=== PATIENT | female | born 1945 | race Caucasian/White ===

== ENCOUNTER 2024-12-28 09:07 | Outpatient (AMB) | payer OTHER, SELFPAY ==
--- NOTE | 2024-12-28 09:27 | MHC.OFFVIS ---
Intake Visit Reasons: 6 month f/u Allergies No Known Allergies Allergy (Verified 12/28/24 09:31) Medication List - Last Reconciled 12/28/24 by Estephania Lugo CNP aripiprazole 5 mg PO DAILY carbidopa-levodopa 25-100 mg 2 tabs PO TID paroxetine HCl 40 mg PO DAILY pramipexole 0.125 mg PO TID trazodone 200 mg PO BEDTIME PRN HPI Comments Details: 79-year-old woman with depression, insomnia, and Parkinson disease. She was doing okay. She had cataract surgery in 11/2024 and 12/2024. Balance could be iffy, and she was not always using a cane, but no falls. Tremors to left hand may be a little bit more, but it was not significantly bothersome. Tremor to right hand and left leg was okay.?No difficulty eating, drinking, or swallowing. She was working 16 hours/week at [employer] in [place]. Memory was stable. Sleep was okay with trazodone. Mood was okay. [facility] Medical History (Updated 12/28/24 @ 09:31 by Estephania Lugo CNP) Depression Parkinson disease Review of Systems Const Denies chills, Denies daytime sleepiness, Denies difficulty sleeping, Denies fatigue, Denies fever(s), Denies frequent falls, Denies headache(s), Denies increased appetite, Denies poor appetite, Denies snoring, Denies weakness, Denies weight gain and Denies weight loss Eyes Denies loss of vision ENT Denies vertigo, Denies dizziness and Denies headache(s) Card Denies chest pain at rest, Denies chest pain with activity, Denies syncope, Denies leg edema and Denies palpitations Resp Denies snoring GI Denies constipation, Denies heartburn, Denies diarrhea and Denies nausea Denies urinary frequency, Denies urinary incontinence and Denies urinary urgency Musc Reports abnormal gait (balance difficulty), Denies numbness and Denies tingling Skin/Breast Denies dry skin and Denies rash Neuro Reports abnormal gait (balance difficulty), Denies vertigo, Denies dizziness, Denies syncope, Denies frequent falls, Denies headache(s), Reports lack of coordination, Denies loss of vision, Denies memory loss, Denies numbness, Denies restless legs, Denies seizure-like activity, Denies tingling, Denies paresthesias, Reports tremor(s) and Denies weakness Psych Denies anxiety, Denies depression, Denies auditory hallucinations, Denies memory loss, Denies visual hallucinations and Denies suicidal ideation Endo Denies fatigue and Denies palpitations Physical Exam Const Other: General Appearance:? normal, in no acute distress. Skin:? no rashes, no significant birthmarks. Heart:? S1, S2 normal, no murmurs. Lungs:? clear anteriorly and posteriorly. Extremities:? no edema. Psych:? alert, oriented, cognitive function intact, cooperative with exam. Neuro Other: Mental Status:?Normal attention, orientation, memory and affect.? Cranial Nerves:?Pupils are equal, round and reactive to light. External occular muscles are intact. Visual mcdonald are full. Face is symmetrical. Facial sensations are normal. Tongue is midline. Palate elevates symmetrically. Shoulder shrugging is normal. Hearing to bedside conversation is mildly decreased. Sensory Exam:?....? Coordination:?No ataxia,?no titubation.? Gait Exam: Cautious - she did not have cane today. Cerebellar Signs:?[id number] is okay. Extrapyramidal System:?Decreased facial expression and blinking. Mild generalized bradykinesia. Fine finger movements are slow bilaterally. Pronator Drift:?Not present.? 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 Speech:?Normal.? Assessment & Plan Assessment & Plan (1) Parkinson disease: Code(s): G20 - Parkinson's disease Category: Medical Qualifiers: Dyskinesia presence: unspecified whether dyskinesia Fluctuating manifestations: unspecified whether manifestations fluctuate Qualified Code(s): G20.A1 - Parkinson's disease without dyskinesia, without mention of fluctuations Plan: Continue carbidopa-levodopa 25-100mg 2 tablets three times a day. Continue pramipexole 0.125mg 1 tablet three times a day. Discussed option to increase dose of medication, not interested at this time. Recommend using cane for additional support. Follow up in 6 months or sooner as needed. (2) Insomnia: Code(s): G47.00 - Insomnia, unspecified Category: Medical Qualifiers: Insomnia type: unspecified Qualified Code(s): G47.00 - Insomnia, unspecified (3) Multifactorial gait disorder: Code(s): R26.89 - Other abnormalities of gait and mobility Category: Medical Plan . Coding Level of Care Code Est Pt Level 4 (18954) Diagnoses Parkinson's disease, unspecified whether dyskinesia present, unspecified whether manifestations fluctuate G20.A1 Dyskinesia presence: unspecified whether dyskinesia Fluctuating manifestations: unspecified whether manifestations fluctuate Insomnia, unspecified type G47.00 Insomnia type: unspecified Multifactorial gait disorder R26.89
== END 2024-12-28 09:40 | disposition home or self-care (01) ==
LOC: HO.HSM 09:08
PROVIDERS: PCP Internal Medicine; Visit Provider Registered Nurse
DX: G20.A1 Parkinson's disease without dyskinesia, without mention of fluctuations (principal); G47.00 Insomnia, unspecified; R26.89 Other abnormalities of gait and mobility
CPT/HCPCS: 99214